=== PATIENT | male | born 1995 | race Two or more races ===

== ENCOUNTER 2025-07-18 11:18 | Emergency (ER) | payer MEDICAID, OTHER ==
[~2025-07-18] VITALS: Ht 170.2 cm; Wt 76.8 kg
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
[2025-07-18] MEDS: OXYMETAZOLINE HCL 0.05 % NASAL SPRAY 15ML EACHNOSTRI ONE (13:13)
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
[2025-07-18] MEDS: HYDROcodone-ACET 5/325MG TAB PO ONE (15:34)
[2025-07-18 19:39] VITALS: BP 122/68; TEMP 98.3
[2025-07-18 19:41] VITALS: PULSE 73; RESP 17; O2SAT 100
== END 2025-07-18 19:43 | disposition short-term general hospital (02) ==
LOC: ER 11:18
DX: S02.2XXA Fracture of nasal bones, initial encounter for closed fracture (principal); S00.33XA Contusion of nose, initial encounter; Y04.0XXA Assault by unarmed brawl or fight, initial encounter; Y93.89 Activity, other specified; Y92.89 Other specified places as the place of occurrence of the external cause; Y99.8 Other external cause status
CPT/HCPCS: 70450; 70486